=== PATIENT | female | born 1990 | race Two or more races ===

== ENCOUNTER 2023-10-20 03:21 | Emergency (ER) | payer BC ==
[~2023-10-20] VITALS: Ht 167.6 cm; Wt 69.1 kg
[2023-10-20 04:21] VITALS: BP 118/63; PULSE 70; RESP 14; O2SAT 99
[2023-10-20 04:37] LABS: Urine Bacteria None Seen /hpf (None Seen)
[2023-10-20 04:43] LABS: Urine Blood Negative /uL (Negative); Urine Clarity Turbid (Clear); Urine Color Light-Yellow (Yellow); Urine Mucus FEW (None Seen); Urine Protein, UAD Negative (Negative); Urine Specific Gravity 1.017 (1.001-1.035); Urine Urobilinogen Normal (Negative); Urine WBC <1 /hpf (0 - 5); Urine pH 7.5 (5.0-9.0)
== END 2023-10-20 06:47 | disposition left against medical advice (07) ==
LOC: ER 03:21
DX: R10.13 Epigastric pain (principal); Z53.21 Procedure and treatment not carried out due to patient leaving prior to being seen by health care provider
CPT/HCPCS: 81001